=== PATIENT | female | born 1955 | race African-American/Black ===

== ENCOUNTER 2024-11-25 17:03 | Inpatient (IN) | payer MEDICARE ==
[~2024-11-25] VITALS: Ht 160 cm; Wt 134.3 kg
[2024-11-25] MEDS: ALBUTEROL (0.083%) 2.5MG/3ML NEB HHN STA (18:24)
[2024-11-25] MEDS: IPRATROPIUM BROMIDE (0.02%) 0.5MG/2.5ML NEB HHN STA (18:25)
[2024-11-25] MEDS: METHYLPREDNISOLONE SOD SUCC 125MG/2ML (ACT-O-VIAL) IV STA (18:25)
[2024-11-25] MEDS: MAGNESIUM 2 G PREMIX 50 ML IV STA (18:25)
[2024-11-25 18:29] VITALS: PULSE 89; RESP 20; O2SAT 99
[2024-11-25 18:33] LABS: CHLORIDE 101 mEq/L (98-107); SODIUM 136 mEq/L (136-145)
[2024-11-25 18:34] LABS: CALCIUM 9.1 mg/dL (8.7-10.4); CARBON DIOXIDE 23 mEq/L (21-32)
[2024-11-25 18:35] LABS: TROPONIN I HIGH SENSITIVITY 8 ng/L (3.0-34)
[2024-11-25 18:39] LABS: CREATININE 3.1 mg/dL (0.6-1.0); GLUCOSE 125 mg/dL (70-105); UREA NITROGEN BLOOD 61 mg/dL (9-23)
[2024-11-25 18:45] LABS: BASOPHILS % 0.3 % (0.0-2.0); EOSINOPHILS % 0.3 % (0.0-5.0); HEMATOCRIT. 31.1 % (36.0-48.0); HEMOGLOBIN. 9.8 g/dL (12.0-16.0); LYMPHOCYTES % 14.9 % (20.0-50.0); MEAN CORPUSCULAR HEMOGLOBIN 31.1 pg (28.0-32.0); MEAN CORPUSCULAR HGB CONC 31.4 g/dL (31.0-37.0); MEAN PLATELET VOLUME 8.2 fl (7.4-10.4); NEUTROPHILS % 74.5 % (40.0-76.0); PLATELET 187 x1000/uL (130-400); RED BLOOD CELL COUNT 3.14 mill/uL (4.2-5.4); RED CELL DISTRIBUTION WIDTH 15.4 % (11.6-14.6); WHITE BLOOD COUNT 9.3 x1000/uL (4.5-11.0)
[2024-11-25 23:10] VITALS: BP 170/74; PULSE 93; RESP 16; TEMP 36.6
[2024-11-26] VITALS (10 sets, daily range): BP systolic 130–183; BP diastolic 57–82; PULSE 76–97; RESP 16–20; TEMP 35.9–36.7; O2SAT 95–99
[2024-11-26] MEDS ORDERED: ACETAMINOPHEN 325MG TABLET PO PRN (00:15)
[2024-11-26] MEDS: HYDROCODONE/ACETAMINOPHEN 5/325MG TABLET PO PRN (00:33)
[2024-11-26 00:50] LABS: BG BASE EXCESS -1.7 mmol/L (-2.0-3.0); BG CARBOXYHEMOGLOBIN 0.1 % (0.5-1.5); BG DEOXYHEMOGLOBIN 6.5 % (0.0-5.0); BG FRACTION INSPIRED OXYGEN 36; BG HCO3 ACT 26.7 mmol/L (21.0-28.0); BG METHEMOGLOBIN 0.1 % (0.5-1.5); BG OXYGEN SATURATION 93.5 % (94.0-98.0); BG OXYHEMOGLOBIN 93.3 % (94.0-98.0); BG PCO2 65.1 mmHg (32.0-45.0); BG PH 7.231 (7.350-7.450); BG PO2 73.1 mmHg (83.0-108.0); BG SAMPLE SITE RIGHT RADIAL; BG TOTAL HEMOGLOBIN 10.6 g/dL (12.0-16.0); BG VENT MODE NASAL CANNULA
[2024-11-26] MEDS: CEFEPIME 1GM/50ML 50 ML IV SCH (06:18)
[2024-11-26] MEDS: METHYLPREDNISOLONE SOD SUCC 40MG/ML (ACT-O-VIAL) IV SCH (06:45)
[2024-11-26 07:45] LABS: HEPATITIS B SURFACE ANTIGEN NEGATIVE (Negative)
[2024-11-26 08:07] LABS: HEPATITIS C AB NON REACTIVE (Neg) (Negative)
[2024-11-26] MEDS: IPRATROPIUM/ALBUTEROL 0.5-3(2.5)MG/3ML NEB HHN SCH (08:14)
[2024-11-26] MEDS: HEPARIN 5000 UNITS/ML VIAL SUBCUT SCH (10:11)
[2024-11-26] MEDS: PANTOPRAZOLE SODIUM 40 MG/VIAL IV SCH (10:11)
[2024-11-26] MEDS: ASPIRIN 81MG EC TABLET PO SCH (10:11)
[2024-11-26] MEDS: ONDANSETRON HCL 4MG/2ML INJ IV PRN (20:43)
[2024-11-27] VITALS (9 sets, daily range): BP systolic 132–168; BP diastolic 69–72; PULSE 78–96; RESP 16–20; TEMP 36.5–36.8; O2SAT 96–99
[2024-11-27] MEDS: CEFEPIME 1GM/50ML 50 ML IV SCH (05:35)
[2024-11-27] MEDS ORDERED: PANTOPRAZOLE SODIUM 40 MG/VIAL IV SCH (11:45)
[2024-11-27] MEDS: FUROSEMIDE 40MG/4ML VIAL IVP NR (12:47)
[2024-11-27] MEDS: PANTOPRAZOLE SODIUM 40 MG/VIAL IV SCH (12:47)
[2024-11-27] MEDS: ACETAMINOPHEN 325MG TABLET PO PRN (12:59)
[2024-11-27 18:10] LABS: HEMATOCRIT 28.3 % (36.0-48.0); MEAN CORPUSCULAR HEMOGLOBIN 30.7 pg (28.0-32.0); MEAN CORPUSCULAR HGB CONC 31.9 g/dL (31.0-37.0); MEAN CORPUSCULAR VOLUME 96.1 fL (81.0-99.0); PLATELET 188 x1000/uL (130-400); RED BLOOD CELL COUNT 2.94 mill/uL (4.2-5.4); RED CELL DISTRIBUTION WIDTH 14.9 % (11.6-14.6); WHITE BLOOD COUNT 9.5 x1000/uL (4.5-11.0)
[2024-11-27 18:24] LABS: CHLORIDE 101 mEq/L (98-107); SODIUM 138 mEq/L (136-145)
[2024-11-27 18:25] LABS: CALCIUM 9.3 mg/dL (8.7-10.4); CARBON DIOXIDE 26 mEq/L (21-32)
[2024-11-27 18:30] LABS: GLUCOSE 140 mg/dL (70-105); UREA NITROGEN BLOOD 81 mg/dL (9-23)
[2024-11-27 18:31] LABS: ALANINE AMINOTRANSFERASE 20 IU/L (10-49); CREATININE 2.1 mg/dL (0.6-1.0)
[2024-11-27 18:32] LABS: ASPARTATE AMINOTRANSFERASE 13 IU/L (<34); BILIRUBIN TOTAL 0.4 mg/dL (0.1-1.0)
[2024-11-27 18:33] LABS: PROTEIN TOTAL 7.1 g/dL (6.0-8.3)
[2024-11-28] VITALS (11 sets, daily range): BP systolic 124–165; BP diastolic 57–79; PULSE 80–94; RESP 16–20; TEMP 36.3–36.7; O2SAT 95–100
[2024-11-28] MEDS: AMLODIPINE 10MG TABLET PO SCH (09:31)
[2024-11-28 21:08] LABS: CHLORIDE 100 mEq/L (98-107); POTASSIUM 4.3 mEq/L (3.5-5.1); SODIUM 139 mEq/L (136-145)
[2024-11-28 21:09] LABS: CALCIUM 8.9 mg/dL (8.7-10.4); CARBON DIOXIDE 30 mEq/L (21-32)
[2024-11-28 21:14] LABS: CREATININE 1.6 mg/dL (0.6-1.0); GLUCOSE 195 mg/dL (70-105); TROPONIN I HIGH SENSITIVITY 10 ng/L (3.0-34); UREA NITROGEN BLOOD 72 mg/dL (9-23)
[2024-11-28 21:16] LABS: ALANINE AMINOTRANSFERASE 20 IU/L (10-49); ALBUMIN 3.9 g/dL (3.2-4.8); ASPARTATE AMINOTRANSFERASE 13 IU/L (<34); BILIRUBIN TOTAL 0.5 mg/dL (0.1-1.0)
[2024-11-28 21:18] LABS: CREATINE KINASE 18 IU/L (34-145); PHOSPHORUS 3.3 mg/dL (2.5-4.9)
[2024-11-29] VITALS (9 sets, daily range): BP systolic 113–162; BP diastolic 52–82; PULSE 76–95; RESP 16–20; TEMP 35–36.8; O2SAT 95–100
[2024-11-29 15:48] LABS: INR 1.1; PROTHROMBIN TIME 11.4 sec (9.6-11.0)
[2024-11-30] VITALS (11 sets, daily range): BP systolic 114–154; BP diastolic 49–76; PULSE 60–96; RESP 16–22; TEMP 36.3–36.7; O2SAT 93–99
[2024-11-30] MEDS: METHYLPREDNISOLONE SOD SUCC 125MG/2ML (ACT-O-VIAL) IV SCH (06:31)
[2024-11-30] MEDS ORDERED: LIDOCAINE HCL 1% 10 MG/ML 10ML VIAL ONE (07:33)
[2024-11-30] MEDS ORDERED: AMLO10TA80 PO ×2 (10:22→12:55)
[2024-11-30] MEDS ORDERED: ASPI-1406 PO (10:22)
[2024-11-30] MEDS ORDERED: IPRA3AMP9 HHN ×2 (10:22→12:56)
[2024-11-30 11:25] LABS: MEAN CORPUSCULAR HEMOGLOBIN 31.5 pg (28.0-32.0); MEAN CORPUSCULAR HGB CONC 32.2 g/dL (31.0-37.0); MEAN CORPUSCULAR VOLUME 97.8 fL (81.0-99.0); MEAN PLATELET VOLUME 8.7 fl (7.4-10.4); PLATELET 159 x1000/uL (130-400); RED BLOOD CELL COUNT 2.86 mill/uL (4.2-5.4); RED CELL DISTRIBUTION WIDTH 15.1 % (11.6-14.6); WHITE BLOOD COUNT 8.6 x1000/uL (4.5-11.0)
[2024-11-30 11:28] LABS: DIFFERENTIAL COMMENT 1
[2024-11-30 11:42] LABS: POTASSIUM 4.6 mEq/L (3.5-5.1)
[2024-11-30 11:43] LABS: CALCIUM 8.9 mg/dL (8.7-10.4)
[2024-11-30 11:48] LABS: CREATININE 1.2 mg/dL (0.6-1.0)
[2024-11-30] MEDS ORDERED: ASPI-1079 PO (12:56)
[2024-11-30 17:28] LABS: PLATELET ESTIMATE NORMAL
== END 2024-11-30 17:40 | DRG 291 ==
LOC: ER 17:06 → EDBEDREQTM 20:36 → EDBEDREQ 20:36 → 5WST 22:19
PROVIDERS: ADMIT Internal Medicine; ATTEND Internal Medicine
PROC: 5A09357 Assistance with Respiratory Ventilation, Less than 24 Consecutive Hours, Continuous Positive Airway Pressure (ICD-10-PCS; 2024-11-26)
PROC: 5A09357 Assistance with Respiratory Ventilation, Less than 24 Consecutive Hours, Continuous Positive Airway Pressure (ICD-10-PCS; 2024-11-29)
PROC: 0JPVXXZ Removal of Tunneled Vascular Access Device from Upper Extremity Subcutaneous Tissue and Fascia, External Approach (ICD-10-PCS; principal; 2024-11-30)
DX: I13.2 Hypertensive heart and chronic kidney disease with heart failure and with stage 5 chronic kidney disease, or end stage renal disease (principal); N18.6 End stage renal disease; Z68.43 Body mass index [BMI] 50.0-59.9, adult; N17.9 Acute kidney failure, unspecified; I50.9 Heart failure, unspecified; E66.01 Morbid (severe) obesity due to excess calories; E11.22 Type 2 diabetes mellitus with diabetic chronic kidney disease; J44.89 Other specified chronic obstructive pulmonary disease; G89.29 Other chronic pain; Z20.822 Contact with and (suspected) exposure to COVID-19; D64.9 Anemia, unspecified; D86.9 Sarcoidosis, unspecified; Z86.74 Personal history of sudden cardiac arrest; Z99.2 Dependence on renal dialysis; Z91.81 History of falling; Z91.041 Radiographic dye allergy status; Z79.899 Other long term (current) drug therapy
CPT/HCPCS: 36415; 36589; 36600; 71045; 76770; 80048; 80053; 82375; 82550; 82805; 83735; 83880; 84100; 84484; 85025; 85027; 86705; 87340; 87426; 93005; 94070; 94640; 94660; 94664; 97167; 97535; 98960; 99285; A4606; A6261; J0692; J1644; J1940; J2003; J2405; J2470; J2919; J2920; J3475